=== PATIENT | male | born 1965 | race Caucasian/White ===

== ENCOUNTER 2016-09-12 13:16 | Observation (INO) | payer MEDICARE, SELFPAY ==
[~2016-09-12] VITALS: Ht 172.7 cm; Wt 107.0 kg
[2016-09-12 13:45] LABS: BASO # 0.1 10_X3_uL (0.0-0.1); BASO % 0.8 % (0.2-1.2); EOS # 0.4 10_X3_uL (0.0-0.5); EOS % 4.2 % (0.8-7.0); GRAN # 5.3 10_X3_uL (1.8-5.4); GRAN % 61.3 % (34.0-67.9); HEMOGLOBIN 15.5 g/dL (13.7-17.5); LYMPH # 2.2 10_X3_uL (1.3-3.6); MEAN CORPUSCULAR HEMOGLOBIN 29.5 pg (27.0-33.0); MEAN CORPUSCULAR HGB CONC 33.7 g/dL (32.0-36.0); MEAN CORPUSCULAR VOLUME 87.6 fL (79-92); MEAN PLATELET VOLUME 10.5 fl (7.5-11.5); MONO # 0.8 10_X3_uL (0.3-0.8); MONO % 8.7 % (5.3-12.2); PLATELET COUNT 301 x10_3/uL (163-337); RED BLOOD COUNT 5.25 x10_6/uL (4.6-6.1); RED CELL DISTRIBUTION WIDTH 13.5 % (11.6-14.4); WHITE BLOOD COUNT 8.6 x10_3/uL (4.2-9.1)
[2016-09-12 13:56] LABS: INR 0.9 (0.9-1.1); PARTIAL THROMBOPLASTIN TIME 23.5 SECONDS (21.3-29.3); PROTHROMBIN TIME (PATIENT) 9.9 SECONDS (9.9-11.1)
[2016-09-12 13:57] LABS: ALBUMIN 3.7 gm/dL (3.4-5.0); ALKALINE PHOSPHATASE 96 U/L (50-136); ALT/SGPT 27 U/L (7.53-40.17); AST/SGOT 15 U/L (6.66-35.34); BILIRUBIN,TOTAL 0.59 mg/dL (0.0-1.0); BLOOD UREA NITROGEN 24 mg/dL (7-18); CALCIUM 9.9 mg/dL (8.7-10.7); CARBON DIOXIDE 28 mmol/L (21-32); CREATINE KINASE 130 U/L (35-232); CREATININE 1.1 mg/dL (0.6-1.3); GLUCOSE,RANDOM 316 mg/dL (70-99); POTASSIUM 4.2 mmol/L (3.5-5.1); SODIUM 138 mmol/L (136-145); TOTAL PROTEIN 6.9 gm/dL (6.4-8.2)
[2016-09-12 19:42] LABS: CKMB 3.6 ng/ml (0.0-5.0)
[2016-09-12 19:44] LABS: TROP-I < 0.30 NG/ML (0.00-0.30)
[2016-09-13 01:57] LABS: CKMB 3.6 ng/ml (0.0-5.0); TROP-I < 0.30 NG/ML (0.00-0.30)
[2016-09-13 06:21] LABS: AHDL CHOLESTEROL 39 mg/dL (>40); ALBUMIN 3.7 gm/dL (3.4-5.0); ALKALINE PHOSPHATASE 71 U/L (50-136); ALT/SGPT 25 U/L (7.53-40.17); AST/SGOT 14 U/L (6.66-35.34); BILIRUBIN,TOTAL 0.61 mg/dL (0.0-1.0); BLOOD UREA NITROGEN 28 mg/dL (7-18); CALCIUM 9.4 mg/dL (8.7-10.7); CARBON DIOXIDE 28 mmol/L (21-32); CHOLESTEROL 151 mg/dL (0-200); CREATININE 1.2 mg/dL (0.6-1.3); GLUCOSE,RANDOM 182 mg/dL (70-99); LDL CHOLESTEROL 80 mg/dL (0-99); SODIUM 139 mmol/L (136-145); TOTAL PROTEIN 6.6 gm/dL (6.4-8.2); TRIGLYCERIDES 191 mg/dL (30-200)
[2016-09-13 08:01] LABS: CKMB 3.8 ng/ml (0.0-5.0)
[2016-09-13 08:14] LABS: TROP-I < 0.30 NG/ML (0.00-0.30)
== END 2016-09-14 12:14 | disposition home or self-care (01) ==
LOC: ER 13:16 → MS 15:25
PROVIDERS: Internal Medicine; ADMIT Family Medicine
DX: R07.89 Other chest pain (principal); I10 Essential (primary) hypertension; E11.9 Type 2 diabetes mellitus without complications; J44.9 Chronic obstructive pulmonary disease, unspecified; E66.9 Obesity, unspecified; M79.602 Pain in left arm; Z87.891 Personal history of nicotine dependence; Z82.49 Family history of ischemic heart disease and other diseases of the circulatory system; Z79.4 Long term (current) use of insulin; Z79.899 Other long term (current) drug therapy
CPT/HCPCS: 36415; 71010; 80053; 80061; 82550; 82553; 82962; 83036; 85025; 85610; 85730; 93005; 93041; 96372; 99070; 99284; 99285-25; G0378

== ENCOUNTER 2016-10-10 13:32 | Emergency (ER) | payer MEDICARE, OTHER | END 2016-10-10 15:14 | disposition home or self-care (01) | LOC: ER 13:32 | DX: L23.9 Allergic contact dermatitis, unspecified cause (principal); R11.2 Nausea with vomiting, unspecified; Z79.899 Other long term (current) drug therapy; Z79.4 Long term (current) use of insulin; Z88.8 Allergy status to other drugs, medicaments and biological substances | CPT/HCPCS: 96372; 99070; 99282-25; 99283 ==